=== PATIENT | female | born 1965 | race African-American/Black ===

== ENCOUNTER 2018-02-09 16:27 | Emergency (ER) | payer OTHER ==
[~2018-02-09] VITALS: Ht 160 cm; Wt 70.6 kg
[~2018-02-09 16:27] MED LIST: AMBIEN CR12.5 MG PO; B-1100 MG PO; B-121000 MC2 PO; CEFUROXIME500 MG PO; CRANBERRY 4001 EAC1 PO; DILANTIN100 MG PO; ENDOCET 5-3251 EACH PO; FISH OIL300 MG PO; FOLIC ACID1 MG PO; HYDROCHLOROTH12.5 M3 PO; LOPRESSOR25 MG PO; OMEPRAZOLE40 M1 PO; OXYCODONE HCL5 MG PO; SUCRALFATE1 GM/10 ML PO; VITAMIN B-1100 MG PO; ZANTAC150 MG PO; ZOFRAN ODT4 MG PO
[2018-02-09 18:02] LABS: HEMATOCRIT 41.7 % (36.0-46.0); HEMOGLOBIN 13.9 G/DL (11.9-15.5); MCH 31.1 PG (29.0-34.0); MCHC 33.3 G/DL (30.0-36.0); MCV 93.3 FL (83-99); PLATELET COUNT 83 K/uL (156-360); RBC DIS.WIDTH-CV 15.4 % (11.8-14.6); RBC DIS.WIDTH-SD 53.1 % (39-53); RED BLOOD COUNT 4.47 M/uL (3.80-5.20); WHITE BLOOD COUNT 6.3 K/uL (4.1-10.2)
[2018-02-09 18:19] LABS: CHLORIDE 99 mEq/L (99-109); POTASSIUM 4.3 mEq/L (3.7-5.4); SODIUM 136 mEq/L (136-147)
[2018-02-09 18:21] LABS: GLUCOSE 79 mg/dL (70-99)
[2018-02-09 18:25] LABS: CREATININE 0.9 mg/dL (0.6-1.3); GFR ESTIMATE (CALCULATED) > 59 mL/min/
[2018-02-09 18:26] LABS: UREA NITROGEN (BUN) 10 mg/dL (9-23)
[2018-02-09 18:33] LABS: QUANTITATIVE HCG < 4.0 MIU/ML
[2018-02-09 22:19] LABS: SERUM ETHYL ALCOHOL < 10 mg/dL
[2018-02-09 23:12] LABS: LIPASE 152 U/L (1.0-51.0)
[2018-02-09 23:32] VITALS: BP 162/103
== END 2018-02-09 23:39 | disposition home or self-care (01) ==
LOC: EME 16:27
PROVIDERS: Emergency Medicine
DX: S00.93XA Contusion of unspecified part of head, initial encounter (principal); S30.1XXA Contusion of abdominal wall, initial encounter; W18.2XXA Fall in (into) shower or empty bathtub, initial encounter; D69.6 Thrombocytopenia, unspecified; F10.129 Alcohol abuse with intoxication, unspecified; K76.0 Fatty (change of) liver, not elsewhere classified; I10 Essential (primary) hypertension; Z98.51 Tubal ligation status
CPT/HCPCS: 70450; 74177; 80048; 83690; 84702; 85027; 99281; 99285; G0480; J2405; J3010; J7030